=== PATIENT | female | born 1950 | race Caucasian/White ===

== ENCOUNTER 2023-12-13 21:03 | Inpatient (IN) | payer OTHER, MEDICAID ==
[~2023-12-13] VITALS: Ht 162.6 cm; Wt 61.6 kg
[2023-12-13 21:27] LABS: Basophils # (auto) 0.1 10 ^3/uL (0-0.2); Basophils % (auto) 0.8 % (0.0-2.0); Eosinophils # (auto) 0 10 ^3/uL (0-0.8); Eosinophils % (auto) 0.1 % (0.0-7.0); Hematocrit 31.8 % (36.0-46.0); Hemoglobin 10.9 g/dL (12.2-16.2); Lymphocytes # (auto) 0.6 10 ^3/uL (0.4-5.4); Lymphocytes % (auto) 7.7 % (10.0-50.0); Mean Corpuscular Hemoglobin 33.5 pg (28.0-32.0); Mean Corpuscular Hgb Conc. 34.4 g/dL (32.0-36.0); Mean Corpuscular Volume 97.3 fL (80.0-100.0); Monocytes # (auto) 0.3 10 ^3/uL (0-1.3); Monocytes % (auto) 3.3 % (0.0-12.0); Neutrophils # (auto) 7.3 10 ^3/uL (1.6-8.6); Neutrophils % (auto) 88.1 % (37.0-80.0); Nucleated Red Blood Cells % 0.1 %; Red Blood Cells 3.26 10^6/uL (4.0-5.20); Red Cell Distribution Width 15.2 % (11.8-14.3); White Blood Cell 8.2 10^3/uL (4.4-10.8)
[2023-12-13 21:38] LABS: Chloride 100 mmol/L (98-107); Potassium 3.1 mmol/L (3.5-5.1); Sodium 136 mmol/L (136-145)
[2023-12-13 21:39] LABS: Anion Gap 8 (5-15); Carbon Dioxide 28 mmol/L (20-30)
[2023-12-13 21:40] LABS: Calcium 9.1 mg/dL (8.7-10.4)
[2023-12-13 21:44] LABS: BUN/Creatinine Ratio 7.3 (10.0-20.0); Blood Urea Nitrogen 24 mg/dL (9-23); Glucose 146 mg/dL (74-106)
[2023-12-13 22:37] LABS: INR 1.11 (0.9-1.15); Partial Thromboplastin Time 30.9 SEC (24.5-34.5); Prothrombin Time 11.7 sec (9.3-11.8)
[2023-12-13 23:00] VITALS: PULSE 80
[2023-12-13] MEDS: HEPARIN SODIUM (PORCINE) 5000 UNITS/ML 1ML VIAL IV ONE (23:10)
[2023-12-14] VITALS (12 sets, daily range): BP systolic 128–156; BP diastolic 50–87; PULSE 58–96; RESP 14–22; TEMP 97.3–98.6; O2SAT 92–98
[2023-12-14] MEDS: MELATONIN 5 MG TAB PO ONE (00:54)
[2023-12-14] MEDS: NITROGLYCERIN 0.4MG/HR TOPICAL PATCH TD ONE (00:54)
[2023-12-14] MEDS ORDERED: ACETAMINOPHEN 325 MG TAB PO PRN (01:00)
[2023-12-14] MEDS: MELATONIN 5 MG TAB ONE (01:04)
[2023-12-14] MEDS: MORPHINE SULFATE 4 MG/ML SYR/VIAL IV ONE (01:45)
[2023-12-14] MEDS: POTASSIUM CHL 20 Meq TABLET PO ONE (02:52)
[2023-12-14] MEDS: HEPARIN DRIP/D5W 100UNITS/ML 250 ML IV SCH (02:53)
[2023-12-14] MEDS ORDERED: NITROGLYCERIN 0.4 MG SL TAB SL PRN (03:45)
[2023-12-14] MEDS: hydrALAZINE HCL 20 MG/ML VL IV PRN (04:28)
[2023-12-14] MEDS: HYDROcodone-ACET 5/325MG TAB PO PRN (04:51)
[2023-12-14] MEDS: MORPHINE SULFATE INJ 2 MG/ml SYRG IV PRN (05:16)
[2023-12-14] MEDS: ONDANSETRON HCL 4 MG/2 ML VIAL IV PRN (05:17)
[2023-12-14 05:38] LABS: Basophils # (auto) 0 10 ^3/uL (0-0.2); Eosinophils # (auto) 0 10 ^3/uL (0-0.8); Lymphocytes # (auto) 1.6 10 ^3/uL (0.4-5.4); White Blood Cell 10.2 10^3/uL (4.4-10.8)
[2023-12-14 05:41] LABS: Basophils % (auto) 0.4 % (0.0-2.0); Eosinophils % (auto) 0.1 % (0.0-7.0); Hematocrit 34.2 % (36.0-46.0); Hemoglobin 11.7 g/dL (12.2-16.2); Mean Corpuscular Hemoglobin 33.8 pg (28.0-32.0); Mean Corpuscular Hgb Conc. 34.1 g/dL (32.0-36.0); Mean Corpuscular Volume 99.2 fL (80.0-100.0); Monocytes # (auto) 0.5 10 ^3/uL (0-1.3); Monocytes % (auto) 5.4 % (0.0-12.0); Neutrophils % (auto) 78.1 % (37.0-80.0); Nucleated Red Blood Cells % 0.2 %; Red Blood Cells 3.45 10^6/uL (4.0-5.20); Red Cell Distribution Width 15.5 % (11.8-14.3)
[2023-12-14] MEDS: SODIUM CHLOR 0.9% PF (SALINE LOCK) 10ML VIAL/SYR IV SCH (06:08)
[2023-12-14 06:10] LABS: Alanine Aminotransferase 21 U/L (7-40); Alkaline Phosphatase 103 U/L (46-116); Anion Gap 8 (5-15); Aspartate Aminotransferase 59 U/L (13-40); BUN/Creatinine Ratio 5.7 (10.0-20.0); Blood Urea Nitrogen 20 mg/dL (9-23); Calcium 9.2 mg/dL (8.7-10.4); Carbon Dioxide 26 mmol/L (20-30); Chloride 100 mmol/L (98-107); Potassium 3.5 mmol/L (3.5-5.1); Sodium 134 mmol/L (136-145)
[2023-12-14 06:11] LABS: Bilirubin, Total 0.9 mg/dL (0.2-1.0); Total Protein 6.6 g/dL (5.7-8.2)
[2023-12-14 08:10] LABS: Glucose 134 mg/dL (74-106)
[2023-12-14] MEDS: SEVELAMER 800 MG TAB PO SCH (08:19)
[2023-12-14] MEDS ORDERED: ASPirin 325 MG TAB PO ONE (09:15)
[2023-12-14] MEDS: B-COMPLEX W/ C & FOLIC ACID(NEPHROVITE TAB) PO SCH (09:44)
[2023-12-14] MEDS: FAMOTIDINE (10MG/ML) 2ML VL IV SCH (09:46)
[2023-12-14 09:49] LABS: INR 1.08 (0.9-1.15); Partial Thromboplastin Time 47.5 SEC (24.5-34.5); Prothrombin Time 11.4 sec (9.3-11.8)
[2023-12-14] MEDS: CLOPIDOGREL BISULFATE 75 MG TAB PO ONE (09:53)
[2023-12-14] MEDS: VERAPAMIL 2.5MG/ML INJ 2ML VIAL IV ONE (10:25)
[2023-12-14] MEDS: LIDOCAINE 2%HCL (LOCAL ANESTH.) INJ 20ML MDV ONE (10:26)
[2023-12-14] MEDS: MIDAZOLAM HCL 2MG/2ML 2ml VIAL (1mg/ml) ONE (10:26)
[2023-12-14] MEDS: IODIXANOL 320MG/ML 100ML BTL IV ONE ×2 (10:26→11:33)
[2023-12-14] MEDS: fentaNYL CITRATE 100 MCG/2 ML VL ONE (10:26)
[2023-12-14] MEDS: ANGIOMAX 250 MG VIAL IV ONE (10:27)
[2023-12-14] MEDS: SODIUM CHL 0.9% 50 ML ONE (10:27)
[2023-12-14] MEDS: IOHEXOL 350 MG/ML 100ML IJ ONE (10:30)
[2023-12-14] MEDS ORDERED: ATORVASTATIN 20 MG TAB PO SCH (22:00)
[2023-12-14] MEDS: AMIODARONE HCL 200 MG TAB PO SCH (23:18)
[2023-12-14] MEDS: ATORVASTATIN 20 MG TAB PO SCH (23:18)
[2023-12-14] MEDS: CARVEDILOL 12.5 MG TAB PO SCH (23:19)
[2023-12-14] MEDS: APIXABAN 5 MG TAB PO SCH (23:19)
[2023-12-15] VITALS (9 sets, daily range): BP systolic 89–130; BP diastolic 41–66; PULSE 52–76; RESP 16–19; TEMP 97.4–98.2; O2SAT 91–99
[2023-12-15 00:42] LABS: Urine Amorphous Crystal FEW /hpf (None Seen); Urine Bacteria MANY /hpf (None Seen); Urine Blood 2+ /uL (Negative); Urine Clarity Turbid (Clear); Urine Color Yellow (Yellow); Urine Protein, UAD 2+ (Negative); Urine Urobilinogen Normal (Negative); Urine WBC 55 /hpf (0 - 5); Urine WBC Clumps PRESENT /hpf (None Seen); Urine pH 6.5 (5.0-9.0)
[2023-12-15 00:43] LABS: Urine Specific Gravity > 1.050 (1.001-1.035)
[2023-12-15 06:18] LABS: Basophils # (auto) 0 10 ^3/uL (0-0.2); Basophils % (auto) 0.5 % (0.0-2.0); Eosinophils # (auto) 0 10 ^3/uL (0-0.8); Eosinophils % (auto) 0.1 % (0.0-7.0); Hematocrit 29.4 % (36.0-46.0); Lymphocytes # (auto) 1.7 10 ^3/uL (0.4-5.4); Lymphocytes % (auto) 18.8 % (10.0-50.0); Mean Corpuscular Hgb Conc. 33.9 g/dL (32.0-36.0); Mean Corpuscular Volume 100.1 fL (80.0-100.0); Monocytes # (auto) 0.6 10 ^3/uL (0-1.3); Monocytes % (auto) 6.8 % (0.0-12.0); Neutrophils # (auto) 6.8 10 ^3/uL (1.6-8.6); Neutrophils % (auto) 73.8 % (37.0-80.0); Red Blood Cells 2.94 10^6/uL (4.0-5.20); Red Cell Distribution Width 15.6 % (11.8-14.3); White Blood Cell 9.2 10^3/uL (4.4-10.8)
[2023-12-15 06:39] LABS: Alanine Aminotransferase 22 U/L (7-40); Albumin 3.4 g/dL (3.2-4.8); Alkaline Phosphatase 77 U/L (46-116); Anion Gap 7 (5-15); Aspartate Aminotransferase 71 U/L (13-40); BUN/Creatinine Ratio 8.8 (10.0-20.0); Calcium 8.7 mg/dL (8.7-10.4); Carbon Dioxide 29 mmol/L (20-30); Chloride 100 mmol/L (98-107); Glucose 117 mg/dL (74-106); Potassium 4.1 mmol/L (3.5-5.1); Sodium 136 mmol/L (136-145)
[2023-12-15 06:40] LABS: Bilirubin, Total 0.6 mg/dL (0.2-1.0); Total Protein 5.8 g/dL (5.7-8.2)
[2023-12-15 06:48] LABS: Blood Urea Nitrogen 38 mg/dL (9-23)
[2023-12-15 07:27] LABS: COVID19 ANTIGEN SOFIA FIA NEGATIVE (NEGATIVE)
[2023-12-15 08:29] LABS: Rapid Influenza A Negative (Negative); Rapid Influenza B Negative (Negative)
[2023-12-15] MEDS: cefTRIAXone 1GM/50ML D5W 50 ML IV SCH (08:53)
[2023-12-15] MEDS: DOCUSATE SOD 100 MG CAP PO PRN (08:53)
[2023-12-15] MEDS: CLOPIDOGREL BISULFATE 75 MG TAB PO SCH (08:55)
[2023-12-15] MEDS: SODIUM CHL 0.9% 1000 ML BAG XX ONE (11:30)
[2023-12-15 12:31] LABS: Hepatitis B Core IgM Negative; Hepatitis C Antibody Negative (Negative)
[2023-12-15] MEDS: ERTAPENEM SOD INJ 0.5 GM in SODIUM CHL 0.9% 50 ML IV SCH (12:45)
[2023-12-15] MEDS ORDERED: SEVE800T8 PO (14:48)
[2023-12-15] MEDS ORDERED: CLOP75TA70 PO (14:48)
[2023-12-15] MEDS ORDERED: AMLO1TAB22 PO (14:48)
[2023-12-15] MEDS ORDERED: MET25T PO (14:48)
[2023-12-15] MEDS ORDERED: ALLO100T PO (14:48)
[2023-12-15] MEDS ORDERED: PANT40TA2 PO (14:48)
[2023-12-15] MEDS ORDERED: ATOR-507 PO (14:48)
[2023-12-15] MEDS ORDERED: LOSA-533 PO (14:48)
[2023-12-15] MEDS ORDERED: AMIO200T33 PO (14:48)
[2023-12-15] MEDS ORDERED: APIX2.5T PO (14:48)
[2023-12-15] MEDS ORDERED: MIDO5TAB4 PO (14:48)
[2023-12-15 14:53] LABS: Hepatitis B Surface Antigen Negative (Negative)
[2023-12-15 15:14] LABS: Hepatitis A Ab IgM Negative
[2023-12-15] MEDS: CARVEDILOL 3.125 MG TAB PO SCH (22:00)
[2023-12-16] VITALS (9 sets, daily range): BP systolic 118–137; BP diastolic 43–73; PULSE 60–99; RESP 17–18; TEMP 97.4–97.9; O2SAT 97–100
[2023-12-16 06:44] LABS: Alanine Aminotransferase 20 U/L (7-40); Alkaline Phosphatase 83 U/L (46-116); Anion Gap 9 (5-15); Blood Urea Nitrogen 22 mg/dL (9-23); Calcium 8.7 mg/dL (8.5-10.1); Carbon Dioxide 29 mmol/L (20-30); Chloride 98 mmol/L (98-107); Glucose 90 mg/dL (74-106); Potassium 3.9 mmol/L (3.5-5.1); Sodium 136 mmol/L (136-145)
[2023-12-16 06:45] LABS: Albumin 3.6 g/dL (3.2-4.8); Aspartate Aminotransferase 50 U/L (13-40); Bilirubin, Total 0.8 mg/dL (0.2-1.0)
== END 2023-12-17 00:50 | disposition short-term general hospital (02) | DRG 280 ==
LOC: EDBD 21:03 → ER 21:03 → TELE 12-14 03:35 → TELE-WESTW 12-14 08:47
PROVIDERS: ADMIT Nurse Practitioner Family; ATTEND Nurse Practitioner Acute Care
PROC: 4A023N8 Measurement of Cardiac Sampling and Pressure, Bilateral, Percutaneous Approach (ICD-10-PCS; principal; 2023-12-14)
PROC: B211YZZ Fluoroscopy of Multiple Coronary Arteries using Other Contrast (ICD-10-PCS; 2023-12-14)
PROC: B215YZZ Fluoroscopy of Left Heart using Other Contrast (ICD-10-PCS; 2023-12-14)
PROC: 5A1D70Z Performance of Urinary Filtration, Intermittent, Less than 6 Hours Per Day (ICD-10-PCS; 2023-12-15)
DX: I51.81 Takotsubo syndrome (principal); N18.6 End stage renal disease; I21.A1 Myocardial infarction type 2; I13.2 Hypertensive heart and chronic kidney disease with heart failure and with stage 5 chronic kidney disease, or end stage renal disease; N39.0 Urinary tract infection, site not specified; I25.10 Atherosclerotic heart disease of native coronary artery without angina pectoris; Z20.822 Contact with and (suspected) exposure to COVID-19; E87.6 Hypokalemia; I50.9 Heart failure, unspecified; I48.0 Paroxysmal atrial fibrillation; I95.9 Hypotension, unspecified; E78.5 Hyperlipidemia, unspecified; I77.1 Stricture of artery; Z99.2 Dependence on renal dialysis; Z79.01 Long term (current) use of anticoagulants; Z95.5 Presence of coronary angioplasty implant and graft
CPT/HCPCS: 36415; 71045; 76775; 80048; 80053; 80061; 80074; 81001; 83036; 83735; 83880; 84443; 84484; 85025; 85610; 85730; 87086; 87426; 87804; 90935; 93005; 93306; 96365; 96376; 99152; 99291; G0378; J1335; J2250; J2405; J3490; Q9967